=== PATIENT | female | born 1985 | race African-American/Black ===

== ENCOUNTER 2018-06-24 15:04 | Emergency (ER) | payer OTHER ==
[~2018-06-24] VITALS: Ht 165.1 cm; Wt 103.2 kg
[~2018-06-24 15:04] MED LIST: AMOXIL500 MG OR; ATUSS DS OR; BACTRIM DS1 TAB PO; DEPO-PROVER150 MG/ML IM; FERROUS SULF325 M1 PO; MOTRIN800 MG/TAB PO; NO MEDS; NYSTATIN100000 M3 TOP; ONDANSETRON ODT8 MG PO; PRENATAL1 TAB OR; PREVACID15 M1 OR; SPRINTEC 2828 DAY PO; TUBERSOL5 MG/0.1 M ID; ZOFRAN ODT4 MG PO
[2018-06-24 15:20] VITALS: BP 149/96
[2018-06-24 16:18] LABS: HEMATOCRIT 35.7 % (37.0-47.0); HEMOGLOBIN 11.3 g/dl (12.0-16.0); IMMATURE GRANULOCYTES 0.2 % (0.0-5.0); MEAN CELL VOLUME 85.4 fL CALC (80.0-100.0); MEAN CORPUSCULAR HGB CONC 31.7 g/L CALC (32.0-36.0); NEUT# 4.35 thou/uL (2.00-7.15); RED BLOOD COUNT 4.18 mill/uL (4.20-5.60); RED CELL DISTRI WIDTH 13.2 % (11.5-15.5)
[2018-06-24 16:36] LABS: ANION GAP 13 (6-22 (CALC)); BUN 13 mg/dL (7-17); BUN/CREATININE RATIO 16 (12-20 (CALC)); CARBON DIOXIDE 27 mmol/l (22-30); CHLORIDE 105 mmol/l (95-108); CREATININE 0.8 mg/dL (0.5-1.0); GFR > 60 ML/MIN (>=60 (CALC)); GFR FOR AFR.AMER. > 60 ML/MIN (>=60 (CALC)); POTASSIUM 4.2 mmol/l (3.5-5.1); SODIUM 140 mmol/l (137-146)
[2018-06-24 16:52] LABS: BETA-HCG, QUANT(RESULT NUMBER) <2 mIU/mL
== END 2018-06-24 16:43 | disposition home or self-care (01) ==
LOC: ED 15:04
PROVIDERS: Family Medicine
DX: N93.9 Abnormal uterine and vaginal bleeding, unspecified (principal)